=== PATIENT | male | born 1975 | race African-American/Black ===

== ENCOUNTER 2022-03-20 18:59 | Inpatient (IN) | payer OTHER ==
[2022-03-20 19:41] LABS: #Basophils 0.1 thou/uL (0.0-0.2); #Lymphocytes 2.3 thou/uL (1.20-3.40); #Monocytes 0.6 thou/uL (0.11-0.59); #Neutrophils 5.6 thou/uL (1.40-6.50); %Basophils 0.7 % (0.0-1.0); %Eosinophils 0.5 % (0.0-10.0); %Monocytes 6.6 % (0.0-10.0); %Neutrophils 65.2 % (42.0-75.0); Hemoglobin 10.8 g/dL (14.0-18.0); Mean Corpuscular HGB CONC 31.5 g/dL (32.0-36.0); Mean Corpuscular Hemoglobin 27.8 pg (27.0-31.0); Mean Corpuscular Volume 88.3 fL (78.0-98.0); Mean Platelet Volume 8.5 fL (7.4-10.4); Platelet Count 222 thou/uL (130-400); RBC Distribution Width 11.7 % (11.5-14.5); Red Blood Cell (RBC) Count 3.89 mill/uL (4.70-6.10); White Blood Cell (WBC) Count 8.6 thou/uL (4.8-10.8)
[2022-03-20 20:09] LABS: ALT (SGPT) 10 U/L (8-55); AST (SGOT) 11 U/L (5-34); Albumin 3.6 g/dL (3.5-5.0); Alkaline Phosphatase 103 U/L (40-110); Anion Gap 14 mmol/L (10-20); BUN (Urea Nitrogen) 11 mg/dL (8.9-20.6); Bilirubin, Total 0.6 mg/dL (0.2-1.2); Calc. Creatinine Clearance 0 mL/min (70-130); Calcium 8.8 mg/dL (7.8-10.44); Carbon Dioxide 25 mmol/L (22-29); Chloride 100 mmol/L (98-107); Estimated GFR 98; Globulin 3.5 g/dL (2.4-3.5); Glucose 302 mg/dL (70-105); Potassium 3.7 mmol/L (3.5-5.1); Protein, Total 7.1 g/dL (6.0-8.3); Sodium 135 mmol/L (136-145)
[2022-03-20] MEDS ORDERED: Cefepime 2 GM VIAL ONE (20:57)
[2022-03-20] MEDS ORDERED: Clindamycin/D5W 900 mg/50 ml Premix Bag ONE (20:57)
[2022-03-20] MEDS ORDERED: VANCOMYCIN 2 GRAM/500 ML BAG 2 GM in Premix Bag 1 BAG IVPB SCH (21:30)
[2022-03-20] MEDS ORDERED: Acetaminophen 325 MG TAB PO PRN (21:58)
[2022-03-20] MEDS ORDERED: Dextrose 50% Abboject 50 ML SYRINGE SLOW IVP PRN (21:58)
[2022-03-20] MEDS ORDERED: Dextrose 5% in Water 1,000 ML IV PRN (21:58)
[2022-03-20] MEDS ORDERED: Ondansetron ODT 4 MG TAB PO PRN (21:58)
[2022-03-20] MEDS ORDERED: Ondansetron PF 4 MG/2 ML Vial IVP PRN (21:58)
[2022-03-20] MEDS: Clindamycin 150 MG CAP PO SCH (23:19)
[2022-03-21 00:19] VITALS: BMI 33.4
[2022-03-21] MEDS: Cefepime 2 GM in Sodium Chloride 0.9% 100 ML IVPB SCH ×3 (05:07→20:38)
[2022-03-21] MEDS: Clindamycin 150 MG CAP PO SCH ×3 (05:08→21:02)
[2022-03-21 06:26] LABS: #Eosinphils 0.1 thou/uL (0.0-0.7); #Lymphocytes 1.9 thou/uL (1.20-3.40); #Monocytes 0.7 thou/uL (0.11-0.59); #Neutrophils 3.8 thou/uL (1.40-6.50); %Basophils 0.6 % (0.0-1.0); %Lymphocytes 29.1 % (21.0-51.0); %Monocytes 10.5 % (0.0-10.0); %Neutrophils 58.8 % (42.0-75.0); Hemoglobin 10.2 g/dL (14.0-18.0); Mean Corpuscular HGB CONC 31.1 g/dL (32.0-36.0); Mean Corpuscular Hemoglobin 27.7 pg (27.0-31.0); Mean Corpuscular Volume 88.9 fL (78.0-98.0); Mean Platelet Volume 8.8 fL (7.4-10.4); Platelet Count 196 thou/uL (130-400); RBC Distribution Width 11.8 % (11.5-14.5); White Blood Cell (WBC) Count 6.5 thou/uL (4.8-10.8)
[2022-03-21 06:51] LABS: ALT (SGPT) 9 U/L (8-55); AST (SGOT) 9 U/L (5-34); Alkaline Phosphatase 94 U/L (40-110); Anion Gap 12 mmol/L (10-20); BUN (Urea Nitrogen) 11 mg/dL (8.9-20.6); Bilirubin, Total 0.8 mg/dL (0.2-1.2); Calc. Creatinine Clearance 193 mL/min (70-130); Calcium 8.5 mg/dL (7.8-10.44); Carbon Dioxide 26 mmol/L (22-29); Chloride 102 mmol/L (98-107); Estimated GFR 105; Globulin 3.5 g/dL (2.4-3.5); Glucose 319 mg/dL (70-105); Potassium 3.8 mmol/L (3.5-5.1); Protein, Total 6.5 g/dL (6.0-8.3); Sodium 136 mmol/L (136-145)
[2022-03-21] MEDS ORDERED: Lactated Ringer's 1,000 ML IV SCH (07:45)
[2022-03-21] MEDS ORDERED: Gadobenate Dimeglumine 529 MG/1 ML (20ML VIAL) ONE (08:00)
[2022-03-21] MEDS ORDERED: Vancomycin 1 GM in Premix Bag 1 BAG IVPB SCH (09:00)
[2022-03-21] MEDS: VANCOMYCIN 2 GRAM/500 ML BAG 2 GM in Premix Bag 1 BAG IVPB SCH ×2 (09:35→16:43)
[2022-03-21] MEDS ORDERED: Insulin Glargine 30 UNITS/0.3 ML VIAL SC SCH (09:45)
[2022-03-21] MEDS: HumaLOG 300 UNITS/3 ML VIAL SC PRN ×3 (13:48→20:46)
[2022-03-21] MEDS: Insulin Glargine 30 UNITS/0.3 ML VIAL SC SCH (20:39)
[2022-03-21] MEDS: Enoxaparin Sodium 40 MG/0.4 ML SYRINGE SC SCH (20:39)
[2022-03-22] MEDS: VANCOMYCIN 1.75 GM/500 ML BAG 1.75 GM in Premix Bag 1 BAG IVPB SCH ×3 (01:28→17:09)
[2022-03-22] MEDS: Cefepime 2 GM in Sodium Chloride 0.9% 100 ML IVPB SCH ×3 (05:22→20:25)
[2022-03-22] MEDS: HumaLOG 300 UNITS/3 ML VIAL SC PRN ×3 (05:22→17:15)
[2022-03-22] MEDS: Clindamycin 150 MG CAP PO SCH ×3 (05:22→21:05)
[2022-03-22 08:01] LABS: #Eosinphils 0.1 thou/uL (0.0-0.7); #Lymphocytes 1.7 thou/uL (1.20-3.40); #Monocytes 0.4 thou/uL (0.11-0.59); #Neutrophils 3.3 thou/uL (1.40-6.50); %Basophils 0.6 % (0.0-1.0); %Eosinophils 1.4 % (0.0-10.0); %Lymphocytes 30.2 % (21.0-51.0); %Monocytes 7.1 % (0.0-10.0); %Neutrophils 60.7 % (42.0-75.0); Hemoglobin 10.3 g/dL (14.0-18.0); Mean Corpuscular HGB CONC 31.4 g/dL (32.0-36.0); Mean Corpuscular Hemoglobin 28.2 pg (27.0-31.0); Mean Corpuscular Volume 89.7 fL (78.0-98.0); Mean Platelet Volume 8.3 fL (7.4-10.4); Platelet Count 194 thou/uL (130-400); RBC Distribution Width 11.8 % (11.5-14.5); Red Blood Cell (RBC) Count 3.64 mill/uL (4.70-6.10); White Blood Cell (WBC) Count 5.5 thou/uL (4.8-10.8)
[2022-03-22 08:21] LABS: Anion Gap 10 mmol/L (10-20); BUN (Urea Nitrogen) 9 mg/dL (8.9-20.6); Calc. Creatinine Clearance 217 mL/min (70-130); Calcium 8.7 mg/dL (7.8-10.44); Carbon Dioxide 28 mmol/L (22-29); Chloride 105 mmol/L (98-107); Estimated GFR 110; Glucose 227 mg/dL (70-105); Potassium 3.8 mmol/L (3.5-5.1); Sodium 139 mmol/L (136-145)
[2022-03-22] MEDS ORDERED: Insulin Glargine 30 UNITS/0.3 ML VIAL SC SCH (09:00)
[2022-03-22] MEDS: Pioglitazone HCl 15 MG TAB PO SCH (09:06)
[2022-03-22] MEDS: Enoxaparin Sodium 40 MG/0.4 ML SYRINGE SC SCH (20:26)
[2022-03-22] MEDS: Insulin Glargine 30 UNITS/0.3 ML VIAL SC SCH (20:26)
[2022-03-23 01:27] LABS: Vancomycin, Trough 19.6 ug/mL
[2022-03-23] MEDS: VANCOMYCIN 1.75 GM/500 ML BAG 1.75 GM in Premix Bag 1 BAG IVPB SCH ×4 (02:37→21:23)
[2022-03-23] MEDS: Clindamycin 150 MG CAP PO SCH ×3 (05:37→21:29)
[2022-03-23] MEDS: Cefepime 2 GM in Sodium Chloride 0.9% 100 ML IVPB SCH ×3 (05:38→23:41)
[2022-03-23 06:14] LABS: #Eosinphils 0.1 thou/uL (0.0-0.7); #Lymphocytes 2.1 thou/uL (1.20-3.40); #Monocytes 0.5 thou/uL (0.11-0.59); #Neutrophils 3.6 thou/uL (1.40-6.50); %Basophils 0.7 % (0.0-1.0); %Eosinophils 1.8 % (0.0-10.0); %Lymphocytes 32.7 % (21.0-51.0); %Monocytes 8.1 % (0.0-10.0); %Neutrophils 56.7 % (42.0-75.0); Hemoglobin 10.2 g/dL (14.0-18.0); Mean Corpuscular HGB CONC 32.3 g/dL (32.0-36.0); Mean Corpuscular Hemoglobin 28.9 pg (27.0-31.0); Mean Corpuscular Volume 89.4 fL (78.0-98.0); Mean Platelet Volume 8.9 fL (7.4-10.4); Platelet Count 200 thou/uL (130-400); RBC Distribution Width 11.7 % (11.5-14.5); Red Blood Cell (RBC) Count 3.51 mill/uL (4.70-6.10); White Blood Cell (WBC) Count 6.4 thou/uL (4.8-10.8)
[2022-03-23] MEDS: HumaLOG 300 UNITS/3 ML VIAL SC PRN ×4 (06:29→22:10)
[2022-03-23 06:35] LABS: Anion Gap 11 mmol/L (10-20); BUN (Urea Nitrogen) 8 mg/dL (8.9-20.6); Calc. Creatinine Clearance 198 mL/min (70-130); Calcium 8.5 mg/dL (7.8-10.44); Carbon Dioxide 26 mmol/L (22-29); Chloride 104 mmol/L (98-107); Estimated GFR 107; Glucose 218 mg/dL (70-105); Sodium 137 mmol/L (136-145)
[2022-03-23] MEDS: Pioglitazone HCl 15 MG TAB PO SCH (08:09)
[2022-03-23] MEDS: glipiZIDE 5 MG TAB PO SCH (08:09)
[2022-03-23] MEDS: Enoxaparin Sodium 40 MG/0.4 ML SYRINGE SC SCH (21:29)
[2022-03-23] MEDS: Insulin Glargine 30 UNITS/0.3 ML VIAL SC SCH (21:30)
[2022-03-24] MEDS: VANCOMYCIN 1.75 GM/500 ML BAG 1.75 GM in Premix Bag 1 BAG IVPB SCH (03:17)
[2022-03-24] MEDS: HumaLOG 300 UNITS/3 ML VIAL SC PRN ×2 (05:56→20:57)
[2022-03-24] MEDS: Cefepime 2 GM in Sodium Chloride 0.9% 100 ML IVPB SCH (06:05)
[2022-03-24] MEDS: Clindamycin 150 MG CAP PO SCH (06:05)
[2022-03-24 06:34] LABS: #Eosinphils 0.1 thou/uL (0.0-0.7); #Monocytes 0.4 thou/uL (0.11-0.59); #Neutrophils 3.6 thou/uL (1.40-6.50); %Basophils 0.5 % (0.0-1.0); %Eosinophils 1.1 % (0.0-10.0); %Lymphocytes 33.4 % (21.0-51.0); %Monocytes 6.7 % (0.0-10.0); %Neutrophils 58.2 % (42.0-75.0); Hemoglobin 11.8 g/dL (14.0-18.0); Mean Corpuscular HGB CONC 33.1 g/dL (32.0-36.0); Mean Corpuscular Hemoglobin 29.7 pg (27.0-31.0); Mean Corpuscular Volume 89.6 fL (78.0-98.0); Mean Platelet Volume 8.8 fL (7.4-10.4); Platelet Count 253 thou/uL (130-400); RBC Distribution Width 12.1 % (11.5-14.5); Red Blood Cell (RBC) Count 3.99 mill/uL (4.70-6.10); White Blood Cell (WBC) Count 6.1 thou/uL (4.8-10.8)
[2022-03-24] MEDS ORDERED: fentaNYL Citrate/PF 100 MCG/2 ML SYRINGE ONE (06:36)
[2022-03-24] MEDS ORDERED: Lactated Ringer's 1,000 ML IV SCH (06:45)
[2022-03-24 06:57] LABS: Anion Gap 10 mmol/L (10-20); BUN (Urea Nitrogen) 9 mg/dL (8.9-20.6); Calc. Creatinine Clearance 193 mL/min (70-130); Calcium 9.5 mg/dL (7.8-10.44); Carbon Dioxide 29 mmol/L (22-29); Chloride 101 mmol/L (98-107); Estimated GFR 105; Glucose 272 mg/dL (70-105); Sodium 136 mmol/L (136-145)
[2022-03-24] MEDS ORDERED: Meperidine HCl/PF 25 MG/ML VIAL SLOW IVP PRN (07:01)
[2022-03-24] MEDS ORDERED: Ketorolac Tromethamine 30 MG/ML VIAL IVP PRN (07:01)
[2022-03-24] MEDS ORDERED: Ondansetron HCl/PF 4 MG/2 ML Vial IVP PRN (07:01)
[2022-03-24] MEDS ORDERED: Promethazine HCl 25 MG/ML VIAL IVPB PRN (07:01)
[2022-03-24] MEDS ORDERED: Promethazine HCl 25 MG/ML VIAL IM PRN (07:01)
[2022-03-24] MEDS ORDERED: Midazolam HCl 2 mg/2 ml Vial ONE (07:28)
[2022-03-24] MEDS ORDERED: Ondansetron PF 4 MG/2 ML Vial ONE (07:35)
[2022-03-24] MEDS ORDERED: Lidocaine 1% PF 5 ML VIAL ONE (07:35)
[2022-03-24] MEDS ORDERED: PROPOFOL 200 MG/20 ML VIAL ONE (07:35)
[2022-03-24] MEDS ORDERED: ePHEDrine 50 MG/ML VIAL ONE (07:35)
[2022-03-24] MEDS ORDERED: traMADol HCl 50 MG TAB PO PRN (08:48)
[2022-03-24] MEDS ORDERED: Acetaminophen 500 MG TAB PO PRN (08:48)
[2022-03-24] MEDS ORDERED: hydrALAZINE 20 MG/ML VIAL ONE (08:53)
[2022-03-24] MEDS ORDERED: Acetaminophen 500 MG TAB PO SCH (09:00)
[2022-03-24] MEDS: glipiZIDE 5 MG TAB PO SCH (10:01)
[2022-03-24] MEDS: Pioglitazone HCl 15 MG TAB PO SCH (10:02)
[2022-03-24] MEDS: Polyethylene Glycol 3350 17 GM Packet PO SCH (10:02)
[2022-03-24] MEDS ORDERED: hydrALAZINE 20 MG/ML VIAL SLOW IVP SCH (10:45)
[2022-03-24 11:18] LABS: Vancomycin, Trough 13.4 ug/mL
[2022-03-24] MEDS: VANCOMYCIN 2 GRAM/500 ML BAG 2 GM in Premix Bag 1 BAG IVPB SCH ×2 (12:39→18:16)
[2022-03-24] MEDS: Insulin Glargine 30 UNITS/0.3 ML VIAL SC SCH (20:56)
[2022-03-24] MEDS ORDERED: Enoxaparin Sodium 40 MG/0.4 ML SYRINGE SC SCH (21:00)
[2022-03-25] MEDS: VANCOMYCIN 2 GRAM/500 ML BAG 2 GM in Premix Bag 1 BAG IVPB SCH ×2 (04:10→13:29)
[2022-03-25] MEDS: HumaLOG 300 UNITS/3 ML VIAL SC PRN (05:42)
[2022-03-25 07:30] LABS: #Eosinphils 0.1 thou/uL (0.0-0.7); #Lymphocytes 1.7 thou/uL (1.20-3.40); #Monocytes 0.5 thou/uL (0.11-0.59); #Neutrophils 3.8 thou/uL (1.40-6.50); %Basophils 0.6 % (0.0-1.0); %Eosinophils 1.8 % (0.0-10.0); %Lymphocytes 27.9 % (21.0-51.0); %Monocytes 7.3 % (0.0-10.0); %Neutrophils 62.4 % (42.0-75.0); Hemoglobin 10.3 g/dL (14.0-18.0); Mean Corpuscular HGB CONC 31.7 g/dL (32.0-36.0); Mean Corpuscular Hemoglobin 28.1 pg (27.0-31.0); Mean Corpuscular Volume 88.7 fL (78.0-98.0); Mean Platelet Volume 8.3 fL (7.4-10.4); Platelet Count 219 thou/uL (130-400); RBC Distribution Width 12.1 % (11.5-14.5); Red Blood Cell (RBC) Count 3.68 mill/uL (4.70-6.10); White Blood Cell (WBC) Count 6.1 thou/uL (4.8-10.8)
[2022-03-25 07:46] LABS: Anion Gap 10 mmol/L (10-20); BUN (Urea Nitrogen) 5 mg/dL (8.9-20.6); Calc. Creatinine Clearance 237 mL/min (70-130); Calcium 8.7 mg/dL (7.8-10.44); Carbon Dioxide 27 mmol/L (22-29); Chloride 104 mmol/L (98-107); Estimated GFR 113; Glucose 172 mg/dL (70-105); Potassium 4.1 mmol/L (3.5-5.1); Sodium 137 mmol/L (136-145)
[2022-03-25] MEDS: Polyethylene Glycol 3350 17 GM Packet PO SCH (08:32)
[2022-03-25] MEDS: Pioglitazone HCl 15 MG TAB PO SCH (08:32)
[2022-03-25] MEDS: glipiZIDE 5 MG TAB PO SCH (08:32)
[2022-03-25 08:38] VITALS: BP 151/82; TEMP 97
[2022-03-25 11:22] LABS: Vancomycin, Trough 21.7 ug/mL
[2022-03-25] MEDS ORDERED: VANCOMYCIN 1.75 GM/500 ML BAG 1.75 GM in Premix Bag 1 BAG IVPB SCH (12:00)
== END 2022-03-25 17:29 | disposition home or self-care (01) | DRG 617 ==
LOC: ERS 18:59 → T4-B 21:25
PROVIDERS: ADMIT Student in an Organized Health Care Education/Training Program; ATTEND Student in an Organized Health Care Education/Training Program
PROC: 0Y6N0ZC Detachment at Left Foot, Partial 3rd Ray, Open Approach (ICD-10-PCS; principal; 2022-03-24)
DX: E11.69 Type 2 diabetes mellitus with other specified complication (principal); M86.8X7 Other osteomyelitis, ankle and foot; L02.612 Cutaneous abscess of left foot; M00.072 Staphylococcal arthritis, left ankle and foot; M00.812 Arthritis due to other bacteria, left shoulder; E11.621 Type 2 diabetes mellitus with foot ulcer; Z20.822 Contact with and (suspected) exposure to COVID-19; E11.40 Type 2 diabetes mellitus with diabetic neuropathy, unspecified; L97.529 Non-pressure chronic ulcer of other part of left foot with unspecified severity; L03.032 Cellulitis of left toe; E11.65 Type 2 diabetes mellitus with hyperglycemia; D64.9 Anemia, unspecified; B95.61 Methicillin susceptible Staphylococcus aureus infection as the cause of diseases classified elsewhere; B95.2 Enterococcus as the cause of diseases classified elsewhere; Z83.3 Family history of diabetes mellitus; Z82.49 Family history of ischemic heart disease and other diseases of the circulatory system; Z98.890 Other specified postprocedural states
CPT/HCPCS: 36415; 36416; 80048; 80053; 80202; 83036; 83605; 84145; 85025; 85652; 86140; 87040; 87070; 87077; 87186; 87205; 88305; 88311; 96365; 96367; 96375; 97139; A9577; C1713; J0360; J0692; J1650; J1815; J2250; J2405; J2704; J3370; J3490; J7120; U0003; U0005

== ENCOUNTER 2022-05-26 09:25 | Outpatient (CLI) | payer OTHER | END 2022-05-26 09:26 | disposition home or self-care (01) | LOC: TBSIIMAG 09:25 | PROVIDERS: ATTEND Internal Medicine Endocrinology, Diabetes & Metabolism | DX: T81.89XA Other complications of procedures, not elsewhere classified, initial encounter (principal) ==

== ENCOUNTER 2022-06-11 11:29 | Outpatient (CLI) | payer OTHER ==
[2022-06-11 13:36] LABS: #Eosinphils 0.1 10x3/uL (0.0-0.5); #Monocytes 0.4 10x3/uL (0.0-1.1); #Neutrophils 2.8 10x3/uL (1.5-8.4); %Basophils 0.8 % (0.0-2.0); %Lymphocytes 34.6 % (18.0-47.0); %Neutrophils 54.2 % (40.0-75.0); Hemoglobin 12.2 g/dL (13.5-17.5); Mean Corpuscular HGB CONC 31.5 g/dL (32.0-36.0); Mean Corpuscular Hemoglobin 26.7 pg (27.0-33.0); Mean Corpuscular Volume 84.7 fl (81.2-95.1); Mean Platelet Volume 10.9 fl (7.4-10.4); Platelet Count 300 10x3/uL (150-450); RBC Distribution Width 12.8 % (11.5-14.5); Red Blood Cell (RBC) Count 4.57 10x6/uL (4.32-5.72); White Blood Cell (WBC) Count 5.1 10x3/uL (3.5-10.5)
[2022-06-11 13:54] LABS: Anion Gap 14 mmol/L (10-20); BUN (Urea Nitrogen) 10 mg/dL (8.9-20.6); Calc. Creatinine Clearance 0 mL/min (70-130); Calcium 9.6 mg/dL (7.8-10.44); Carbon Dioxide 29 mmol/L (22-29); Chloride 98 mmol/L (98-107); Estimated GFR 101; Glucose 168 mg/dL (70-105); Potassium 4.3 mmol/L (3.5-5.1); Sodium 137 mmol/L (136-145)
== END 2022-06-11 11:30 | disposition home or self-care (01) ==
LOC: LABBT 11:29
PROVIDERS: ATTEND Specialist
DX: Z01.812 Encounter for preprocedural laboratory examination (principal); Z20.822 Contact with and (suspected) exposure to COVID-19
CPT/HCPCS: 80048; 85025; 87811

== ENCOUNTER 2022-06-15 06:05 | Day surgery (SDC) | payer OTHER ==
[2022-06-12 09:45] VITALS: BMI 28.1
[2022-06-15] MEDS ORDERED: Gabapentin 300 MG CAP ONE (07:03)
[2022-06-15] MEDS ORDERED: Ketorolac Tromethamine 30 MG/ML VIAL ONE (07:03)
[2022-06-15] MEDS ORDERED: Acetaminophen 500 MG TAB ONE (07:03)
[2022-06-15] MEDS ORDERED: VANCOMYCIN 1.25 GM/250 ML BAG 1.25 GM in Premix Bag 1 BAG IVPB SCH (07:15)
[2022-06-15] MEDS ORDERED: fentaNYL Citrate/PF 100 MCG/2 ML SYRINGE ONE (08:38)
[2022-06-15] MEDS ORDERED: Cefepime 1 GM in Sodium Chloride 0.9% 100 ML IVPB SCH (08:45)
[2022-06-15] MEDS ORDERED: ePHEDrine 50 MG/ML VIAL ONE (08:58)
[2022-06-15] MEDS ORDERED: Ondansetron PF 4 MG/2 ML Vial ONE (08:58)
[2022-06-15] MEDS ORDERED: Lidocaine 1% MPF 2 ML VIAL ONE (08:58)
[2022-06-15] MEDS ORDERED: PROPOFOL 200 MG/20 ML VIAL ONE (08:58)
== END 2022-06-15 12:05 | disposition home or self-care (01) ==
LOC: SDC 06:05
PROVIDERS: ATTEND Specialist
PROC: 0Y6N0ZB Detachment at Left Foot, Partial 2nd Ray, Open Approach (ICD-10-PCS; principal; 2022-06-15)
DX: E11.69 Type 2 diabetes mellitus with other specified complication (principal); M86.172 Other acute osteomyelitis, left ankle and foot; Z79.2 Long term (current) use of antibiotics; Z79.84 Long term (current) use of oral hypoglycemic drugs; Z79.899 Other long term (current) drug therapy; Z89.422 Acquired absence of other left toe(s)
CPT/HCPCS: 88305; 88311; 93005; 93010; 97139; J0692; J1885; J2405; J2704; J3370; J3490

== ENCOUNTER 2025-04-06 08:30 | Inpatient (IN) | payer OTHER ==
[2025-04-06 08:27] VITALS: BMI 33.7
[2025-04-09] MEDS ORDERED: Rocuronium Bromide 10 MG/ML (10ML VIAL) ONE (11:38)
[2025-04-09] MEDS ORDERED: fentaNYL PF 100 MCG/2 ML SYRINGE ONE ×4 (11:38→16:22)
[2025-04-09] MEDS ORDERED: Lidocaine 1% PF 5 ML VIAL ONE (11:38)
[2025-04-09] MEDS ORDERED: PROPOFOL 20 ML ONE (11:38)
[2025-04-09] MEDS ORDERED: Ondansetron PF 4 MG/2 ML Vial ONE ×2 (11:38→15:14)
[2025-04-09] MEDS ORDERED: PHENYLEPHRINE-NS 100 MCG/ML 10 ML SYRINGE ONE (11:40)
[2025-04-09] MEDS ORDERED: Glycopyrrolate 0.2 MG/ML 5 ML SYRINGE ONE (11:40)
[2025-04-09] MEDS ORDERED: SUCCINYLCHOLINE/SOD CL,ISO/PF 200 MG/10 ML SYRINGE FS ONE (11:42)
[2025-04-09] MEDS ORDERED: Lidocaine 2% 6 ML (Jelly) SYR ONE (11:43)
[2025-04-09] MEDS ORDERED: Etomidate 40 MG (20 mL) VIAL ONE (13:44)
[2025-04-09] MEDS ORDERED: CEFAZOLIN 1 GM VIAL ONE (14:40)
[2025-04-09] MEDS ORDERED: SUGAMMADEX SODIUM 200 MG/2 ML VIAL ONE (15:14)
[2025-04-09] MEDS ORDERED: HYDROmorphone 0.5 MG/0.5 ML SYRINGE ONE ×3 (16:07→16:46)
[2025-04-09] MEDS ORDERED: Senokot S 8.6-50 MG TAB PO PRN (16:12)
[2025-04-09] MEDS ORDERED: Bisacodyl 10 MG SUPP PR PRN (16:12)
[2025-04-09] MEDS ORDERED: Melatonin 3 MG TAB PO PRN (16:12)
[2025-04-09] MEDS ORDERED: HYDROcodone/Acetaminophen 5/325 mg Tablet PO PRN (16:12)
[2025-04-09] MEDS ORDERED: Calcium Carbonate 500 MG ChewTAB PO PRN (16:12)
[2025-04-09] MEDS ORDERED: HYDROcodone/Acetaminophen 5/325 mg Tablet ONE (17:18)
[2025-04-09] MEDS: HYDROcodone/Acetaminophen 5/325 mg Tablet PO PRN (17:19)
[2025-04-09] MEDS ORDERED: hydrALAZINE 20 MG/ML VIAL ONE (17:53)
[2025-04-09 20:04] LABS: Anion Gap 16 mmol/L (10-20); BUN (Urea Nitrogen) 10 mg/dL (8.9-20.6); Calc. Creatinine Clearance 195 mL/min (70-130); Calcium 8.5 mg/dL (7.8-10.44); Carbon Dioxide 21 mmol/L (22-29); Chloride 101 mmol/L (98-107); Glucose 432 mg/dL (70-105); Potassium 3.9 mmol/L (3.5-5.1); Sodium 134 mmol/L (136-145)
[2025-04-09] MEDS: CEFAZOLIN 1 GM VIAL SLOW IVP SCH (20:13)
[2025-04-09] MEDS: glipiZIDE 5 MG TAB PO SCH (20:13)
[2025-04-09] MEDS ORDERED: Dextrose 50% Abboject 50 ML SYRINGE SLOW IVP PRN (21:45)
[2025-04-09] MEDS ORDERED: Glucagon 1 MG/ML KIT IM PRN (21:45)
[2025-04-10 05:23] LABS: #Basophils Less than 0.03 10x3/uL (0.0-0.2); #Eosinophils Less than 0.03 10x3/uL (0.0-0.7); #Monocytes 0.58 10x3/uL (0.11-0.59); #Neutrophils 7.83 10x3/uL (1.40-6.50); %Basophils 0.1 % (0.0-1.0); %Eosinophils 0.0 % (0.0-10.0); %Lymphocytes 11.0 % (21.0-51.0); %Monocytes 6.1 % (0.0-10.0); %Neutrophils 82.4 % (42.0-75.0); Hematocrit 30.7 % (42.0-52.0); Hemoglobin 9.4 g/dL (14.0-18.0); Mean Corpuscular Hemoglobin 25.8 pg (27.0-31.0); Mean Corpuscular Volume 84.3 fL (78.0-98.0); Platelet Count 213 10x3/uL (130-400); Red Blood Cell (RBC) Count 3.64 mill/uL (4.70-6.10); White Blood Cell (WBC) Count 9.51 10x3/uL (4.8-10.8)
[2025-04-10] MEDS: Pantoprazole 40 MG DR.TAB PO SCH (08:02)
[2025-04-10] MEDS: Ondansetron PF 4 MG/2 ML Vial IVP PRN (13:26)
[2025-04-10 18:19] LABS: Chloride 99 mmol/L (98-107); Potassium 3.7 mmol/L (3.5-5.1); Sodium 133 mmol/L (136-145)
[2025-04-10 18:30] LABS: Anion Gap 12 mmol/L (10-20); BUN (Urea Nitrogen) 12 mg/dL (8.9-20.6); Calc. Creatinine Clearance 187 mL/min (70-130); Calcium 8.2 mg/dL (7.8-10.44); Carbon Dioxide 26 mmol/L (22-29); Glucose 322 mg/dL (70-105)
[2025-04-11 05:19] LABS: #Basophils Less than 0.03 10x3/uL (0.0-0.2); #Eosinophils Less than 0.03 10x3/uL (0.0-0.7); #Monocytes 0.40 10x3/uL (0.11-0.59); #Neutrophils 4.09 10x3/uL (1.40-6.50); %Basophils 0.3 % (0.0-1.0); %Eosinophils 0.1 % (0.0-10.0); %Lymphocytes 33.1 % (21.0-51.0); %Monocytes 5.9 % (0.0-10.0); %Neutrophils 60.2 % (42.0-75.0); Hematocrit 27.4 % (42.0-52.0); Hemoglobin 8.4 g/dL (14.0-18.0); Mean Corpuscular Hemoglobin 26.3 pg (27.0-31.0); Mean Corpuscular Volume 85.6 fL (78.0-98.0); Platelet Count 152 10x3/uL (130-400); Red Blood Cell (RBC) Count 3.20 mill/uL (4.70-6.10); White Blood Cell (WBC) Count 6.80 10x3/uL (4.8-10.8)
[2025-04-11 18:15] LABS: Anion Gap 9 mmol/L (10-20); BUN (Urea Nitrogen) 8 mg/dL (8.9-20.6); Calc. Creatinine Clearance 181 mL/min (70-130); Calcium 8.3 mg/dL (7.8-10.44); Carbon Dioxide 29 mmol/L (22-29); Chloride 100 mmol/L (98-107); Glucose 328 mg/dL (70-105); Potassium 4.1 mmol/L (3.5-5.1); Sodium 134 mmol/L (136-145)
[2025-04-12 05:30] LABS: #Basophils Less than 0.03 10x3/uL (0.0-0.2); #Eosinophils 0.05 10x3/uL (0.0-0.7); #Monocytes 0.39 10x3/uL (0.11-0.59); #Neutrophils 3.02 10x3/uL (1.40-6.50); %Basophils 0.3 % (0.0-1.0); %Eosinophils 0.9 % (0.0-10.0); %Lymphocytes 39.3 % (21.0-51.0); %Monocytes 6.8 % (0.0-10.0); %Neutrophils 52.4 % (42.0-75.0); Hematocrit 27.8 % (42.0-52.0); Hemoglobin 8.4 g/dL (14.0-18.0); Mean Corpuscular Hemoglobin 26.3 pg (27.0-31.0); Mean Corpuscular Volume 86.9 fL (78.0-98.0); Platelet Count 139 10x3/uL (130-400); Red Blood Cell (RBC) Count 3.20 mill/uL (4.70-6.10); White Blood Cell (WBC) Count 5.77 10x3/uL (4.8-10.8)
[2025-04-12 18:23] LABS: Anion Gap 13 mmol/L (10-20); BUN (Urea Nitrogen) 8 mg/dL (8.9-20.6); Calc. Creatinine Clearance 209 mL/min (70-130); Calcium 8.3 mg/dL (7.8-10.44); Carbon Dioxide 25 mmol/L (22-29); Chloride 99 mmol/L (98-107); Glucose 321 mg/dL (70-105); Potassium 4.0 mmol/L (3.5-5.1); Sodium 133 mmol/L (136-145)
[2025-04-13 05:08] LABS: #Basophils Less than 0.03 10x3/uL (0.0-0.2); #Eosinophils 0.05 10x3/uL (0.0-0.7); #Monocytes 0.37 10x3/uL (0.11-0.59); #Neutrophils 3.24 10x3/uL (1.40-6.50); %Basophils 0.3 % (0.0-1.0); %Eosinophils 0.8 % (0.0-10.0); %Lymphocytes 37.6 % (21.0-51.0); %Monocytes 6.2 % (0.0-10.0); %Neutrophils 54.6 % (42.0-75.0); Hematocrit 27.6 % (42.0-52.0); Hemoglobin 8.4 g/dL (14.0-18.0); Mean Corpuscular Hemoglobin 26.1 pg (27.0-31.0); Mean Corpuscular Volume 85.7 fL (78.0-98.0); Platelet Count 167 10x3/uL (130-400); Red Blood Cell (RBC) Count 3.22 mill/uL (4.70-6.10); White Blood Cell (WBC) Count 5.95 10x3/uL (4.8-10.8)
[2025-04-13 15:00] VITALS: BP 148/87; TEMP 98
== END 2025-04-13 15:55 | disposition home or self-care (01) | DRG 240 ==
LOC: SURG A 04-09 10:27 → SURG B 04-09 18:41
PROVIDERS: ADMIT Thoracic Surgery (Cardiothoracic Vascular Surgery); ATTEND Thoracic Surgery (Cardiothoracic Vascular Surgery)
PROC: 0Y6H0Z3 Detachment at Right Lower Leg, Low, Open Approach (ICD-10-PCS; principal; 2025-04-09)
PROC: 3E03329 Introduction of Other Anti-infective into Peripheral Vein, Percutaneous Approach (ICD-10-PCS; 2025-04-09)
DX: E11.52 Type 2 diabetes mellitus with diabetic peripheral angiopathy with gangrene (principal); I96 Gangrene, not elsewhere classified; M86.661 Other chronic osteomyelitis, right tibia and fibula; E11.69 Type 2 diabetes mellitus with other specified complication; Z98.890 Other specified postprocedural states; Z79.899 Other long term (current) drug therapy
CPT/HCPCS: 36415; 36416; 80048; 85025; 88307; 88311; J0360; J0690; J1100; J1171; J1815; J2250; J2405; J2704